=== PATIENT | female | born 1985 | race Caucasian/White ===

== ENCOUNTER 2019-05-09 17:37 | Emergency (ER) | payer MEDICAID ==
[~2019-05-09] VITALS: Ht 157.5 cm; Wt 113.0 kg
[2019-05-09 17:40] VITALS: BP 114/74
== END 2019-05-09 20:30 | disposition left against medical advice (07) ==
LOC: ER 17:37
DX: Z53.21 Procedure and treatment not carried out due to patient leaving prior to being seen by health care provider (principal)